=== PATIENT | female | born 1945 | race Caucasian/White ===

== ENCOUNTER 2016-05-14 09:44 | Outpatient (CLI) | payer MEDICARE, OTHER | END 2016-05-14 09:45 | disposition home or self-care (01) | DX: M85.89 Other specified disorders of bone density and structure, multiple sites (principal) ==

== ENCOUNTER 2016-07-09 09:32 | Outpatient (CLI) | payer MEDICARE, OTHER | END 2016-07-09 09:33 | disposition home or self-care (01) | DX: Z12.31 Encounter for screening mammogram for malignant neoplasm of breast (principal) ==

== ENCOUNTER 2017-07-01 12:31 | Outpatient (CLI) | payer MEDICARE, OTHER ==
--- NOTE | 2017-07-01 16:37 | MRI Report ---
EXAM: MRI CERVICAL SPINE WITHOUT CONTRAST EXAM DATE: 07/01/2017 01:21 PM. CLINICAL HISTORY: 71-year-old woman with right arm paresthesias. COMPARISONS: None. TECHNIQUE: Multiplanar, multisequence T1-weighted and fluid-sensitive sequences of the cervical spine without contrast. Other: None. FINDINGS: Neurologic Structures: Cord is normal in caliber without definite signal abnormality. Visualized cont ents of the posterior fossa are unremarkable. Alignment: Grade 1 anterolisthesis of C2 on C3 measures approximately 2 mm. Bone Marrow: No gross fractures or bone lesions. Trace degenerative endplate edema is present at C4-C 5, C5-C6, and C6-C7. Interspace Levels/Facets: C2-C3: Unremarkable. C3-C4: Anterolisthesis of C3 on C4 and broad-based disk bulge result in mild narrowing of the central canal. Uncovertebral joint hypertrophy and mild facet hypertrophy result in moderate narrowing of th e right neural foramen and zasj-ed-kyniziss narrowing on the left. C4-C5: There is moderate disk height loss. Posterior disk osteophyte complex results in mild narrowin g of the central canal. Uncovertebral joint hypertrophy and facet hypertrophy result in moderate to s evere narrowing of the left neural foramen and mild to moderate narrowing on the right. C5-C6: There is moderate disk height loss. Posterior disk osteophyte complex results in tntr-fo-udfnv ate narrowing of the central canal. Uncovertebral joint hypertrophy and facet hypertrophy result in m oderate to severe narrowing of the neural foramina bilaterally. C6-C7: There is moderate disk height loss. Posterior disk osteophyte complex results in mild narrowin g of the central canal. Uncovertebral joint hypertrophy results in mild to moderate narrowing of the right neural foramen and mild narrowing on the left. C7-T1: Unremarkable. Musculature: Normal. No edema or fatty atrophy. Other: The paravertebral and prevertebral soft tissues are normal. IMPRESSION: 1. Multilevel degenerative changes with trace bony endplate edema at C4-C5 through C6-C7. 2. Degenerative changes result in the following: - C3-C4: Grade 1 anterolisthesis. Mild narrowing of the central canal. Moderate narrowing of the righ t neural foramen and mild to moderate narrowing on the left. - C4-C5: Mild narrowing of the central canal. Moderate to severe narrowing of the left neural foramen and bzmi-vm-niumohob narrowing on the right. - C5-C6: Mild to moderate narrowing of the central canal. Moderate to severe narrowing of the neural foramina bilaterally. - C6-C7: Mild narrowing of the central canal. Mild to moderate narrowing of the right neural foramen and mild narrowing on the left. [facility] Referring Provider Line: [phone] SITE ID: [id number]
== END 2017-07-01 12:32 | disposition home or self-care (01) ==
LOC: DI 12:31
PROVIDERS: ATTEND Internal Medicine
DX: M50.31 Other cervical disc degeneration, high cervical region (principal); M47.892 Other spondylosis, cervical region; M43.12 Spondylolisthesis, cervical region
CPT/HCPCS: 72141

== ENCOUNTER 2017-07-16 12:52 | Outpatient (CLI) | payer MEDICARE, OTHER ==
--- NOTE | 2017-07-17 14:16 | Mammography Report ---
DIGITAL SCREENING MAMMOGRAM: 07/16/2017 CLINICAL INDICATION: A 72-year-old nulliparous the patient with history of left axillary lymph node removal for screening. COMPARISON: 06/2016, 10/2014, 09/2013, 06/2012, 05/2012, 02/2011, 02/2010. TECHNIQUE: Routine CC and MLO projections were obtained of the breasts. FINDINGS: Scattered fibroglandular tissue is present within the breasts. There are no dominant masses, suspicious microcalcifications, or secondary signs of malignancy. In comparison to the previous studies, there are no significant changes. IMPRESSION: NO MAMMOGRAPHIC EVIDENCE OF MALIGNANCY. NO SIGNIFICANT INTERVAL CHANGES. RECOMMENDATION: Screening mammography is recommended annually. BIRADS CATEGORY 1 - NEGATIVE. STANDARD QUALIFYING STATEMENTS: 1. This examination was reviewed with the aid of Computed-Aided Detection (CAD). 2. A negative or benign imaging report should not delay biopsy if clinically suspicious findings are present. Consider surgical consultation if warranted. More than 5% of cancers are not identified by imaging. 3. Dense breasts may obscure an underlying neoplasm. TD: 07/17/2017 14:15
== END 2017-07-16 12:53 | disposition home or self-care (01) ==
LOC: DI 12:52
PROVIDERS: ATTEND Internal Medicine
DX: Z12.31 Encounter for screening mammogram for malignant neoplasm of breast (principal)
CPT/HCPCS: 77067

== ENCOUNTER 2018-12-08 16:27 | Outpatient (CLI) | payer MEDICARE, OTHER ==
--- NOTE | 2018-12-09 08:35 | Mammography Report ---
Reason: SCREENING MAMMO Procedure Date: 12/08/2018 Accession Number: [id number] / [id number] Procedure: TAD - Screening Mammo w/Boubacar CPT Code: FULL RESULT: EXAM: Screening Mammo w/Boubacar DATE: 12/08/2018 5:12 PM CLINICAL HISTORY: Screening encounter. History of nulliparity. TECHNIQUE: (B) - Bilateral CC and MLO views were obtained. COMPARISON: 07/16/2017 through 09/21/2013. PARENCHYMAL PATTERN: (A) - The breast(s) demonstrate(s) scattered fibroglandular densities. FINDINGS: There are no suspicious masses, calcifications, or areas of distortion. IMPRESSION: Negative examination. BI-RADS category 1. RECOMMENDATION: (ANNUAL) - Recommend routine annual screening mammography. BI-RADS CATEGORY: (1) - Negative. STANDARD QUALIFYING STATEMENTS: 1. This examination was not reviewed with the aid of Computer-Aided Detection (CAD). 2. A negative or benign imaging report should not preclude biopsy if clinically suspicious findings are present. 3. Dense breasts may obscure an underlying neoplasm. 4. This examination was reviewed with the aid of 3D breast imaging (tomosynthesis).
== END 2018-12-08 16:28 | disposition home or self-care (01) ==
LOC: DI 16:27
PROVIDERS: ATTEND Internal Medicine
DX: Z12.31 Encounter for screening mammogram for malignant neoplasm of breast (principal)
CPT/HCPCS: 77063; 77067

== ENCOUNTER 2019-02-05 11:09 | Outpatient (CLI) | payer MEDICARE, OTHER ==
--- NOTE | 2019-02-09 08:16 | DEXA Report ---
Reason: OSTEOPENIA Procedure Date: 02/05/2019 Accession Number: [id number] / [id number] Procedure: DEX - Dexa Spine and/or Hip CPT Code: Final Report FULL RESULT: EXAM: Dexa Spine and/or Hip DATE: 02/05/2019 11:57 AM CLINICAL HISTORY: OSTEOPENIA TECHNIQUE: Dual energy x-ray absorptiometry (DXA) was performed on a [employer] System. Regions measured are the AP Spine, femoral neck, and if needed forearm. COMPARISON: 05/14/2016. In accordance with the International Society for Clinical Densitometry (ISCD) guidelines, data from previous exams may be reanalyzed using current recommendations and techniques. This is done to allow a more accurate basis for comparison with the current study. FINDINGS: The data for the lumbar spine is as follows: BMD (g/cm/cm) T-SCORE Z-SCORE REGION L1 0.899 -1.9 -0.3 L2 0.929 -2.3 -0.6 L3 1.109 -0.8 0.9 L4 1.135 -0.5 1.1 TOTAL 1.036 -1.2 0.5 NOTE: All evaluable vertebrae are used for classification The data for the hip is as follows: BMD (g/cm/cm) T-SCORE Z-SCORE REGION Neck 0.724 -2.3 -0.4 TOTAL 0.778 -1.8 -0.2 NOTE: The femoral neck or total proximal femur, whichever is lowest, is used for classification. DXA RESULTS SUMMARY: Spine SCAN DATE [age] BMD CHANGE VS CHANGE VS PREVIOUS PREVIOUS % [birth year]05[birth year]2019 [age] 1.036 0.036* 3.6* 05/14/2016 [age] 1[age]000 * Denotes significant change at the 95% confidence level. Denotes dissimilar scan types or analysis methods. DXA RESULTS SUMMARY: Hip SCAN DATE AGE BMD CHANGE VS CHANGE VS PREVIOUS PREVIOUS % [birth year]2019 [age] 0.778 -0.010 -1.3 05/14/2016 [age] 0[age]788 * Denotes significant change at the 95% confidence level. Denotes dissimilar scan types or analysis methods. IMPRESSION: 1. THE WHO CLASSIFICATION BASED ON THE INTERNATIONAL REFERENCE STANDARD IS OSTEOPENIA. THE FRACTURE RISK IS INCREASED. 2. THERE HAS BEEN A STATISTICALLY SIGNIFICANT CHANGE IN BONE MINERAL DENSITY IN THE SPINE SINCE THE PRIOR EXAM FROM 05/14/2016. RECOMMENDATION: Patients with diagnosis of osteoporosis or osteopenia should have regular bone mineral density assessment. For those eligible for Medicare, routine testing is allowed once every 2 years. Testing frequency can be increased for patients who have rapidly progressing disease or for those who are receiving medical therapy to restore bone mass. COMMENT: World Health Organization (WHO) definitions for osteoporosis and osteopenia: NORMAL BMD: T-score at -1.0 or higher, fracture risk is low OSTEOPENIA BMD: T-score between -1.0 and -2.5, fracture risk is increased. OSTEOPOROSIS BMD: T-score at -2.5 or lower, fracture risk is high. National Osteoporosis Foundation recommends: 1. Obtain adequate dietary calcium (at least 1200 mg per day) and vitamin D (400-800 international units per day). 2. Participate, as appropriate, in regular weightbearing and muscle-strengthening exercise. 3. Avoid tobacco use and reduce alcohol and caffeine intake. 4. For more detailed information see the website at www.NOF.org.
== END 2019-02-05 11:10 | disposition home or self-care (01) ==
LOC: DI 11:09
PROVIDERS: ATTEND Internal Medicine
DX: M85.89 Other specified disorders of bone density and structure, multiple sites (principal)
CPT/HCPCS: 77080

== ENCOUNTER 2019-03-03 14:44 | Outpatient (CLI) | payer MEDICARE, OTHER ==
--- NOTE | 2019-03-03 15:30 | XRAY Report ---
Reason: M79.672 PX LT FOOT Procedure Date: 03/03/2019 Accession Number: [id number] / [id number] Procedure: XRS - Foot 3 View LT CPT Code: Final Report FULL RESULT: EXAM: LEFT FOOT RADIOGRAPHY EXAM DATE: 03/03/2019 02:59 PM. CLINICAL HISTORY: Impact injury to left foot yesterday. Pain over the dorsal left foot. COMPARISON: XR FOOT COMPLETE MIN 3 VIEWS 06/23/2007 11:18 AM. TECHNIQUE: 3 views. FINDINGS: Bones: Bones appear diffusely demineralized. No fractures or bone lesions. Joints: Normal. No subluxations. Soft Tissues: Normal. No soft tissue swelling. IMPRESSION: 1. Bones appear diffusely demineralized. 2. No fracture or malalignment is identified. [facility]
== END 2019-03-03 14:45 | disposition home or self-care (01) ==
LOC: DI.S 14:44
PROVIDERS: ATTEND Internal Medicine
DX: M79.672 Pain in left foot (principal); M81.0 Age-related osteoporosis without current pathological fracture

== ENCOUNTER 2020-10-08 13:14 | Outpatient (CLI) | payer MEDICARE, OTHER ==
--- NOTE | 2020-10-09 14:21 | Mammography Report ---
BILATERAL DIGITAL SCREENING MAMMOGRAM 3D/2D: 10/08/2020 CLINICAL: Routine screening. Comparison is made to exams dated: 12/08/2018 mammogram, 07/16/2017 mammogram, 07/09/2016 mammogram, 10/16 mammogram, 06/02/2012 mammogram, and 10/21/2014 mammogram - [facility]. The ti ssue of both breasts is predominantly fatty. No significant masses, calcifications, or other findings are seen in either breast. There has been no significant interval change. IMPRESSION: NEGATIVE There is no mammographic evidence of malignancy. A 1 year screening mammogram is recommended. This exam was interpreted at Station ID: [id number]. NOTE: For mammograms, a report in lay terms will be sent to the patient. Approximately 15% of breast malignancies will not be visualized mammographically. In the management of a palpable breast mass, a negative mammogram must not discourage biopsy of a clinically suspicious lesion. Electronically Signed By: Pravin Santos M.D., jr/walter:10/09/2020 09:45:20 ACR BI-RADS Category 1: Negative 3341F PARENCHYMAL PATTERN: (F) - The breast(s) demonstrate(s) diffuse fatty replacement. BI-RADS CATEGORY: (1) - 1 RECOMMENDATION: (ANNUAL) - Recommend routine annual screening mammography. [id number] 1 year screening LATERALITY: (B)
== END 2020-10-08 13:15 | disposition home or self-care (01) ==
LOC: DI.S 13:14
DX: Z12.31 Encounter for screening mammogram for malignant neoplasm of breast (principal)

== ENCOUNTER 2021-04-13 15:13 | Outpatient (CLI) | payer MEDICARE, OTHER ==
--- NOTE | 2021-04-13 16:55 | DEXA Report ---
PROCEDURE: Dexa Spine and/or Hip INDICATIONS: OSTEOPOROSIS TECHNIQUE: Dual energy x-ray absorptiometry (DXA) was performed on a [employer] System. Regions measur ed are the AP Spine, femoral neck, and if needed forearm. COMPARISON: None. FINDINGS: Lumbar Spine: Bone Mineral Density 0.97 g/cm/cm,T score -1.7, osteopenia Left Hip: Bone Mineral Density 0.76 g/cm/cm,T score -1.9, osteopenia Impression: Osteopenia of the lumbar spine and left hip. Patients with diagnosis of osteoporosis or osteopenia should have regular bone mineral density assess ment. For those eligible for Medicare, routine testing is allowed once every 2 years. Testing frequ ency can be increased for patients who have rapidly progressing disease or for those who are receivin g medical therapy to restore bone mass. Reviewed by: Keenan Ramos MD on 04/13/2021 4:53 PM PST Approved by: Keenan Rmaos MD on 04/13/2021 4:53 PM PST Station ID: [id number]
== END 2021-04-13 15:14 | disposition home or self-care (01) ==
LOC: DI 15:13
PROVIDERS: ATTEND Physician Assistant
DX: M81.0 Age-related osteoporosis without current pathological fracture (principal); M85.89 Other specified disorders of bone density and structure, multiple sites

== ENCOUNTER 2022-01-30 13:01 | Outpatient (CLI) | payer MEDICARE, OTHER ==
--- NOTE | 2022-01-31 09:43 | Mammography Report ---
BILATERAL DIGITAL SCREENING MAMMOGRAM 3D/2D: 01/30/2022 CLINICAL: Routine screening. Comparison is made to exams dated: 10/08/2020 mammogram, 07/16/2017 mammogram, and 12/08/2018 mammogram - [facility]. There are scattered areas of fibroglandular density in both breasts (category b / 25%-50% glandular t issue). No significant masses, calcifications, or other findings are seen in either breast. There has been no significant interval change. IMPRESSION: NEGATIVE There is no mammographic evidence of malignancy. A 1 year screening mammogram is recommended. Based on the Tyrer Cuzick model (a risk assessment model) the patients lifetime risk is 6.2% and her 10 year risk is 0.0%. According to the ACR, ACS, and NCCN guidelines, an annual breast MRI exam jose g with mammogram is recommended if the patients lifetime risk is 20% or greater. This exam was interpreted at Station ID: [id number]. NOTE: For mammograms, a report in lay terms will be sent to the patient. Approximately 15% of breast malignancies will not be visualized mammographically. In the management of a palpable breast mass, a negative mammogram must not discourage biopsy of a clinically suspicious lesion. Electronically Signed By: Hui cortes/walter:01/30/2022 13:52:31 ACR BI-RADS Category 1: Negative 3341F PARENCHYMAL PATTERN: (A) - The breast(s) demonstrate(s) scattered fibroglandular densities. BI-RADS CATEGORY: (1) - 1 RECOMMENDATION: (ANNUAL) - Recommend routine annual screening mammography. [id number] 1 year screening LATERALITY: (B)
== END 2022-01-30 13:02 | disposition home or self-care (01) ==
LOC: DI.S 13:01
PROVIDERS: ATTEND Physician Assistant
DX: Z12.31 Encounter for screening mammogram for malignant neoplasm of breast (principal)

== ENCOUNTER 2023-01-28 10:50 | Outpatient (CLI) | payer MEDICARE, OTHER ==
--- NOTE | 2023-01-29 16:06 | Mammography Report ---
BILATERAL DIGITAL SCREENING MAMMOGRAM 3D/2D: 01/28/2023 CLINICAL: Routine screening. Comparison is made to exams dated: 01/30/2022 mammogram, 10/08/2020 mammogram, 12/08/2018 mammogram, a nd 07/16/2017 mammogram - [facility]. There are scattered areas of fibroglandular density in both breasts (category b / 25%-50% glandular t issue). No significant masses, calcifications, or other findings are seen in either breast. There has been no significant interval change. IMPRESSION: NEGATIVE There is no mammographic evidence of malignancy. A 1 year screening mammogram is recommended. Based on the Tyrer Cuzick model (a risk assessment model) the patients lifetime risk is 5.6% and her 10 year risk is 0.0%. According to the ACR, ACS, and NCCN guidelines, an annual breast MRI exam jose g with mammogram is recommended if the patients lifetime risk is 20% or greater. This exam was interpreted at Station ID: [id number]. NOTE: For mammograms, a report in lay terms will be sent to the patient. Approximately 15% of breast malignancies will not be visualized mammographically. In the management of a palpable breast mass, a negative mammogram must not discourage biopsy of a clinically suspicious lesion. Electronically Signed By: Tato vu/waltre:01/28/2023 18:44:07 letter sent: No_Letter ACR BI-RADS Category 1: Negative 3341F PARENCHYMAL PATTERN: (A) - The breast(s) demonstrate(s) scattered fibroglandular densities. BI-RADS CATEGORY: (1) - 1 Mammogram [id number] 1 year screening LATERALITY: (B)
== END 2023-01-28 10:51 | disposition home or self-care (01) ==
LOC: DI.S 10:50
PROVIDERS: ATTEND Physician Assistant
DX: Z12.31 Encounter for screening mammogram for malignant neoplasm of breast (principal); R92.323 Mammographic fibroglandular density, bilateral breasts

== ENCOUNTER 2023-03-20 13:17 | Outpatient (CLI) | payer MEDICARE, OTHER ==
--- NOTE | 2023-03-20 17:18 | XRAY Report ---
PROCEDURE: Toe(s) 2+V RT INDICATIONS: PAIN OF TOE OF RIGHT FOOT TECHNIQUE: 3 views of the right fifth toe(s) acquired. COMPARISON: None. FINDINGS: Bones: There is a displaced intra-articular fracture at the base of the proximal phalanx of the right fifth digit. No other fracture or dislocation. Soft tissues: No suspicious soft tissue densities. IMPRESSION: Proximal fifth phalangeal fracture. Reviewed by: Hui Edwards MD on 03/20/2023 5:17 PM [facility] Approved by: Hui Edwards MD on 03/20/2023 5:17 PM [facility] Station ID: [id number]
== END 2023-03-20 13:18 | disposition home or self-care (01) ==
LOC: DI.S 13:17
PROVIDERS: ATTEND Registered Nurse
DX: S92.511A Displaced fracture of proximal phalanx of right lesser toe(s), initial encounter for closed fracture (principal)

== ENCOUNTER 2023-08-18 07:00 | Outpatient (CLI) | payer MEDICARE, OTHER | END 2023-08-18 23:59 | disposition home or self-care (01) | LOC: LAB.S 07:00 | PROVIDERS: ATTEND Emergency Medicine | DX: N30.00 Acute cystitis without hematuria (principal) | CPT/HCPCS: 87077; 87086; 87181 ==

== ENCOUNTER 2023-08-22 08:00 | Outpatient (CLI) | payer MEDICARE, OTHER | END 2023-08-22 23:59 | disposition home or self-care (01) | LOC: LAB.WCP 08:00 | PROVIDERS: ATTEND Urology | DX: N30.00 Acute cystitis without hematuria (principal) | CPT/HCPCS: 87086 ==